=== PATIENT | female | born 1955 | race Caucasian/White ===

== ENCOUNTER → 2024-02-07 11:31 | Outpatient (REF) | payer BC, SELFPAY ==
[2024-02-07 12:20] LABS: % Basophils 1.6 % (0-2); % Immature Granulocytes 0.4 % (0-0.5); % Monocytes 9.8 % (1.7-9.3); % Neutrophils 60.2 % (42.2-75.2); Absolute Basophils 0.1 10^3/uL (0-0.2); Absolute Eosinophils 0.1 10^3/uL (0-0.7); Absolute Lymphocytes 1.3 10^3/uL (1.2-3.4); Absolute Monocytes 0.5 10^3/uL (0.1-0.6); Hematocrit 41.3 % (37.0-47.0); Hemoglobin 13.5 g/dL (12.0-16.0); Mean Corp Hgb Conc. 32.7 g/dL (33.0-37.0); Mean Corpuscular Hgb 28.7 pg (27.0-31.0); Mean Corpuscular Volume 87.9 fL (81.0-99.0); Mean Platelet Volume 8.5 fL (7.4-10.4); Nucleated Red Blood Cells % 0 %; Platelet Count 350 10^3/uL (130-400); Red Cell Dist. Width 13.3 % (11.5-14.5); White Blood Cell Count 4.9 10^3/uL (4.8-10.8)
[2024-02-07 12:54] LABS: ALT (SGPT) 19 U/L (0-35); AST (SGOT) 21 U/L (14-36); Albumin 4.5 g/dl (3.5-5.0); Alkaline Phosphatase 60 U/L (38-126); Blood Urea Nitrogen 12 mg/dl (7-17); Calcium 9.3 mg/dl (8.4-10.2); Carbon Dioxide 28 mmol/L (22-30); Chloride 100 mmol/L (98-107); Glucose 86 mg/dl (70-99); HDL Cholesterol 91 mg/dl; LDL Cholesterol, Calculated 127 mg/dl; Potassium 4.1 mmol/L (3.5-5.1); Sodium 141 mmol/L (135-145); Total Bilirubin 0.5 mg/dl (0.2-1.3); Total Cholesterol 226 mg/dl (50-199); Triglyceride 43 mg/dl (10-149); Very Low Density Lipoprotein 8 mg/dl (0-30); eGFR > 60.00
[2024-02-07 13:15] LABS: TSH Reflex To Free T4 1.66 uIU/ml (0.47-4.68)
== END ==
LOC: REG 11:31
PROVIDERS: ATTENDING PHYSICIAN Internal Medicine
DX: E78.00 Pure hypercholesterolemia, unspecified (principal); R53.83 Other fatigue; R25.2 Cramp and spasm
CPT/HCPCS: 36415; 80053; 80061; 84443; 85025

== ENCOUNTER → 2024-03-15 11:12 | Outpatient (REF) | payer MEDICARE, OTHER, SELFPAY ==
[2024-03-15 13:05] LABS: Vitamin D, 25-OH*** 77.3 ng/mL (30-80)
== END ==
LOC: REG 11:12
PROVIDERS: ATTENDING PHYSICIAN Internal Medicine
DX: R53.83 Other fatigue (principal); E55.9 Vitamin D deficiency, unspecified
CPT/HCPCS: 36415; 82306